=== PATIENT | female | born 1990 | race Asian ===

== ENCOUNTER 2022-08-10 14:38 | Outpatient (CLI) | payer OTHER | END 2022-08-10 20:13 | disposition home or self-care (01) | LOC: MUS 14:38 | PROVIDERS: ATTEND Obstetrics & Gynecology Reproductive Endocrinology | DX: O34.81 Maternal care for other abnormalities of pelvic organs, first trimester (principal); N83.291 Other ovarian cyst, right side; Z3A.01 Less than 8 weeks gestation of pregnancy | CPT/HCPCS: 76801 ==